=== PATIENT | male | born 2000 | race African-American/Black ===

== ENCOUNTER 2024-07-28 21:43 | Emergency (ER) | payer OTHER | END 2024-07-28 22:31 | LOC: EMS 21:47 | DX: T18.5XXA Foreign body in anus and rectum, initial encounter (principal); W44.9XXA Unspecified foreign body entering into or through a natural orifice, initial encounter; Y93.89 Activity, other specified; Y92.89 Other specified places as the place of occurrence of the external cause; Y99.8 Other external cause status | CPT/HCPCS: 99283; Z7502 ==